=== PATIENT | female | born 1985 | race Caucasian/White ===

== ENCOUNTER → 2020-09-20 | Outpatient (CLI) | payer BC ==
--- NOTE | 2020-09-20 16:56 | CT ---
EXAM DESCRIPTION: Maxillofacial w/wo Contrast CLINICAL HISTORY: 35 years Female, epistaxis COMPARISON: None. TECHNIQUE: Transaxial images were obtained pre and post menstruation of intravenous contrast media. Sagittal and coronal reconstruction was performed.This exam was performed according to our departmental dose-optimization program, which includes automated exposure control, adjustment of the mA and/or kV according to patient size and/or use of iterative reconstruction technique. FINDINGS: No pathologic adenopathy is observed. The salivary glands as imaged are normal. Mild mucosal sinus disease is observed in the floor of the left maxillary antrum. The right maxillary antrum is clear. The exam also reveals mucosal sinus disease in the right sphenoid sinus air cell. The frontal sinuses are clear. No intra-axial abnormality is seen. A small left-sided nasal spur is observed. The ostiomeatal complexes are patent. There is mild mucosal disease about the right ostiomeatal complex. The mastoid sinus air cells appear clear. IMPRESSION: 1. Minimal mucosal sinus disease is observed in the floor the left maxillary antrum and in the right sphenoid sinus air cell Electronically signed by: Ricky Easton MD 09/20/2020 4:54 PM [facility]
== END ==
LOC: CT 09:37
PROVIDERS: ATTEND Family Medicine
DX: R04.0 Epistaxis (principal); J34.89 Other specified disorders of nose and nasal sinuses